=== PATIENT | female | born 1945 | race Hispanic/Latino ===

== ENCOUNTER → 2017-07-16 | Outpatient (CLI) | payer OTHER, MEDICARE | LOC: MAMMO 10:49 | PROVIDERS: ATTEND Family Medicine | DX: Z12.31 Encounter for screening mammogram for malignant neoplasm of breast (principal) | CPT/HCPCS: 77067 ==

== ENCOUNTER 2017-07-24 20:06 | Emergency (ER) | payer BC, MEDICARE ==
[~2017-07-24] VITALS: Ht 165.1 cm; Wt 97.5 kg
[2017-07-24] MEDS ORDERED: METOPROLOL SUCC50 MG PO (20:28)
[2017-07-24] MEDS ORDERED: IRBESARTAN150 MG PO (20:28)
[2017-07-24] MEDS ORDERED: ELIQUIS PO (20:28)
[2017-07-24] MEDS ORDERED: AMLODIPINE BESYL5 MG PO (20:28)
[2017-07-24] MEDS ORDERED: LASIX40 MG PO (20:28)
--- NOTE | 2017-07-24 21:09 | Diagnostic Imaging Report ---
LOWER LEG LEFT - 2 views HISTORY: Pain. COMPARISON: None available. FINDINGS: Bones: No acute displaced fracture. Osseous alignment is within normal limits. Joints: The joint spaces are well-maintained. Soft tissues: The soft tissues appear unremarkable. IMPRESSION: No acute radiographic abnormality. Signed by: Dr. Jones Petit M.D. on 07/24/2017 9:05 PM
[2017-07-24 21:20] LABS: BASOPHILS % 0.2 % (0.0-1.0); EOSINOPHILS # (AUTO) 0.2 (0.0-0.4); EOSINOPHILS % 2.9 % (0.0-6.0); HEMATOCRIT 38.5 % (34.2-44.1); HEMOGLOBIN 12.9 g/dL (12.0-16.0); LYMPHOCYTES # (AUTO) 2.1 (1.0-3.2); LYMPHOCYTES % 25.2 % (18.0-39.1); MEAN CORPUSCULAR HEMOGLOBIN 28.5 pg (28-32); MEAN CORPUSCULAR HGB CONC 33.5 g/dL (31-35); MEAN CORPUSCULAR VOLUME 85.2 fL (81-99); MONOCYTES % 12.5 % (4.4-11.3); NEUTROPHILS # (AUTO) 4.8 (2.1-6.9); PLATELET COUNT 236 x10e3/uL (140-360); RED BLOOD COUNT 4.52 x10e6/uL (3.6-5.1); RED CELL DISTRIBUTION WIDTH 14.1 % (11.7-14.4)
[2017-07-24 21:26] LABS: INR 1.1; PROTHROMBIN TIME 13.4 seconds (11.9-14.5)
[2017-07-24 21:27] LABS: PARTIAL THROMBOPLASTIN TIME 30.9 seconds (23.8-35.5)
[2017-07-24 21:36] LABS: ALANINE AMINOTRANSFERASE 12 IU/L (0-55); ALBUMIN 3.7 g/dL (3.5-5.0); ALBUMIN/GLOBULIN RATIO 0.8 (0.8-2.0); ALKALINE PHOSPHATASE 94 IU/L (40-150); ANION GAP 14.1 mmol/L (8-16); BLOOD UREA NITROGEN 13 mg/dL (7-26); BUN/CREATININE RATIO 17 (6-25); CALCIUM 9.7 mg/dL (8.4-10.2); CARBON DIOXIDE 22 mmol/L (22-29); CHLORIDE 106 mmol/L (98-107); CREATININE, SERUM 0.77 mg/dL (0.57-1.11); EST GLOMERULAR FILTRATION RATE > 60 ML/MIN (60-); GLUCOSE 115 mg/dL (74-118); POTASSIUM 4.1 mmol/L (3.5-5.1); SODIUM 138 mmol/L (136-145)
== END 2017-07-24 22:20 | disposition home or self-care (01) ==
LOC: ER 20:06
DX: S80.12XA Contusion of left lower leg, initial encounter (principal); W18.39XA Other fall on same level, initial encounter; Y92.008 Other place in unspecified non-institutional (private) residence as the place of occurrence of the external cause; I10 Essential (primary) hypertension; I25.10 Atherosclerotic heart disease of native coronary artery without angina pectoris; I48.91 Unspecified atrial fibrillation
CPT/HCPCS: 36415; 80053; 85025; 85610; 85730; 93971; 99284

== ENCOUNTER → 2017-08-20 | Outpatient (CLI) | payer BC, MEDICARE ==
[~2017-08-20] MED LIST: AMLODIPINE BESYL5 MG PO; ELIQUIS PO; IRBESARTAN150 MG PO; LASIX40 MG PO; METOPROLOL SUCC50 MG PO
--- NOTE | 2017-08-20 10:14 | Diagnostic Imaging Report ---
PROCEDURE:X-RAY RIGHT HEEL COMPARISON:None. INDICATIONS:HEEL SPUR, HEEL PAIN FINDINGS: No acute, displaced fracture or dislocation. Mild degenerative plantar and posterior calcaneal spur. Joint spaces are well-maintained. Mild soft tissue swelling adjacent to the superior margin of the calcaneus. CONCLUSION: no acute osseous abnormality. Degenerative plantar and posterior calcaneal spur. Dictated by: Kalin Alonso M.D. on 08/20/2017 at 10:16 Electronically approved by: Kalin Alonso M.D. on 08/20/2017 at 10:16
== END ==
LOC: RAD 09:39
PROVIDERS: ATTEND Family Medicine
DX: M79.671 Pain in right foot (principal)

== ENCOUNTER → 2018-07-30 | Outpatient (CLI) | payer MEDICARE, BC ==
--- NOTE | 2018-07-30 09:24 | Diagnostic Imaging Report ---
EXAMINATION: PA and lateral views of the chest. COMPARISON: None CLINICAL HISTORY: Paroxysmal ventricular tachycardia, cough, back pain, chest pain DISCUSSION: The lungs are well-inflated. No focal airspace consolidation, pleural effusion, or pneumothorax. Atherosclerotic calcification of the thoracic aorta. Otherwise normal cardiomediastinal contour. No pulmonary edema. No acute osseous abnormalities. Mild degenerative disc changes of the thoracic spine. IMPRESSION: No acute cardiopulmonary abnormalities. Signed by: Dr. Kalin Alonso M.D. on 07/30/2018 9:21 AM
== END ==
LOC: RAD 08:03
PROVIDERS: ATTEND Family Medicine
DX: I47.2 Ventricular tachycardia (principal)
CPT/HCPCS: 71046

== ENCOUNTER → 2018-08-03 | Outpatient (CLI) | payer BC, MEDICARE | LOC: MAMMO 09:23 | PROVIDERS: ATTEND Family Medicine | DX: Z12.31 Encounter for screening mammogram for malignant neoplasm of breast (principal) | CPT/HCPCS: 77067 ==

== ENCOUNTER → 2019-01-11 | Day surgery (SDC) | payer MEDICARE ==
[2019-01-05 17:24] LABS: BASOPHILS % 0.5 % (0.0-1.0); EOSINOPHILS # (AUTO) 0.2 (0.0-0.4); EOSINOPHILS % 2.8 % (0.0-6.0); HEMATOCRIT 39.4 % (34.2-44.1); HEMOGLOBIN 12.7 g/dL (12.0-16.0); LYMPHOCYTES # (AUTO) 1.9 (1.0-3.2); LYMPHOCYTES % 30.5 % (18.0-39.1); MEAN CORPUSCULAR HEMOGLOBIN 27.6 pg (28-32); MEAN CORPUSCULAR HGB CONC 32.2 g/dL (31-35); MEAN CORPUSCULAR VOLUME 85.7 fL (81-99); MONOCYTES # (AUTO) 0.8 (0.2-0.8); MONOCYTES % 12.3 % (4.4-11.3); NEUTROPHILS # (AUTO) 3.4 (2.1-6.9); NEUTROPHILS % 53.6 % (38.7-80.0); PLATELET COUNT 208 x10e3/uL (140-360)
[~2019-01-11] MED LIST changes: +FENTANYL CITRATE/PF 100MCG/2 ML INJ ONE; +LANSOPRAZOLE30 MG PO; +MIDAZOLAM HCL 2 MG/2 ML VIAL ONE; +NEOMYCIN/POLYMYXIN/DEX (OPTH) 3.5 GM TUBE ONE; +OR PHACO EYE KIT ONE; +PREOP PHACO EYE KIT ONE; +TIKOSYN500 MCG PO
--- OUTSIDE RECORDS SUMMARY | 2019-01-11 11:35 | XMS REPORT | CCD ---
Author Author Auto Generated Organization [facility] Address Unknown Phone Unavailable Care Team Providers Care Sample Dye Mixer Name Role Phone Festus Gleason CP Allergies, Adverse Reactions, Alerts Substance Reaction Status Levaquin Active penicillins Active Medications Medication Instructions Start Date End Date Status Phenergan 25 mg oral 25 mg, 1 tab, PO, Q4H, PRN, 15 tab, 06/19/2012 Ordered tablet Nausea, Substitution Allowed [place] 5/325 oral 1-2 tab, PO, Q4-6H, PRN, 15 tab, 06/19/2012 06/24/2012 Ordered tablet Pain, Substitution Allowed, Maintenance Zofran 4 mg, 2 mL, Route: IVP, Drug form: 06/18/2012 06/19/2012 Completed INJ, ONCE, Dosing Weight 98.636, kg, Priority: STAT, Start date: 06/18/12 23:22:00, Stop date: 06/18/12 23:22:00 morphine Sulfate 4 mg, 2 mL, Route: IVP, Drug form: 06/18/2012 06/19/2012 Completed INJ, ONCE, Dosing Weight 98.636, kg, Priority: STAT, Start date: 06/18/12 23:22:00, Stop date: 06/18/12 23:22:00 Vital Signs Most recent to oldest [Reference Range]: 1 Height 165.1 cm (06/18/2012 22:56:00) Weight 98.636 kg (06/18/2012 22:56:00)
--- OUTSIDE RECORDS SUMMARY | 2019-01-11 11:35 | XMS REPORT | Continuity of Care Document ---
Author Author [facility] Address Unknown Phone Unavailable Care Team Providers Care Lining Vamper Name Role Phone [facility] Unavailable Unavailable Problems Problem Status Onset Date Classification Date Reported Comments Source LEG PAIN Active 06/22/2012 [facility] LEFT LEG PAIN Active 06/18/2012 [facility] Medications Medication Details Route Status Patient Instructions Ordering Provider Order Date Source Phenergan 25 mg oral tablet 25 mg, 1 tab, PO, Q4H, PRN, 15 tab, Nausea, Substitution Allowed PO Active [facility] 06/19/2012 [facility] [place] 5/325 oral tablet 1-2 tab, PO, Q4-6H, PRN, 15 tab, Pain, Substitution Allowed, Maintenance PO Active [facility] 06/19/2012 [facility] Zofran 4 mg, 2 mL, Route: IVP, Drug form: INJ, ONCE, Dosing Weight 98.636, kg, Priority: STAT, Start date: 06/18/12 23:22:00, Stop date: 06/18/12 23:22:00 IVP No Longer Active [facility] 06/19/2012 [facility] morphine Sulfate 4 mg, 2 mL, Route: IVP, Drug form: INJ, ONCE, Dosing Weight 98.636, kg, Priority: STAT, Start date: 06/18/12 23:22:00, Stop date: 06/18/12 23:22:00 IVP No Longer Active [facility] 06/19/2012 [facility] Amlodipine Besylate 5 Mg Tablet Daily Active [facility] Eliquis Daily Active [facility] Furosemide (Lasix) 40 Mg Tablet Daily Active [facility] Irbesartan 150 Mg Tablet Daily Active [facility] Metoprolol Succinate 50 Mg Tab.er.24h Daily Active [facility] Allergies, Adverse Reactions, Alerts Substance Category Reaction Severity Reaction type Status Date Reported Comments Source PENICILLIN Unknown Allergy to Substance Active 07/24/2017 [facility] Levaquin drug allergy Allergy Active [facility] penicillins propensity to adverse reactions to substance Adverse Reaction Active [facility] Immunizations No Data Provided for This Section Results Order Name Results Value Reference Range Date Interpretation Comments Source Activated partial thromboplastin time (aPTT) in platelet poor plasma bycoagulation assay Activated partial thromboplastin time (aPTT) in platelet poor plasma bycoagulation assay 30.9 23.8 - 35.5 07/24/2017 [facility] Automated blood basophil count (count/volume) Automated blood basophil count (count/volume) 0.0 0.0 - 0.1 07/24/2017 [facility] Automated blood basophil count as percentage of total leukocytes Automated blood basophil count as percentage of total leukocytes 0.2 0.0 - 1.0 07/24/2017 [facility] Automated blood eosinophil count Automated blood eosinophil count 0.2 0.0 - 0.4 07/24/2017 [facility] Automated blood eosinophil count as percentage of total leukocytes Automated blood eosinophil count as percentage of total leukocytes 2.9 0.0 - 6.0 07/24/2017 [facility] Automated blood hematocrit (volume fraction) Automated blood hematocrit (volume fraction) 38.5 34.2 - 44.1 07/24/2017 [facility] Automated blood lymphocyte count as percentage ot total leukocytes Automated blood lymphocyte count as percentage ot total leukocytes 25.2 18.0 - 39.1 07/24/2017 [facility] Automated blood monocyte count as percentage of total leukocytes Automated blood monocyte count as percentage of total leukocytes 12.5 4.4 - 11.3 07/24/2017 [facility] Automated blood neutrophil count Automated blood neutrophil count 4.8 2.1 - 6.9 07/24/2017 [facility] Automated blood platelet count (count/volume) Automated blood platelet count (count/volume) 236 140 - 360 07/24/2017 [facility] Automated blood segmented neutrophil count as percentage of total leukocytes Automated blood segmented neutrophil count as percentage of total leukocytes 59.0 38.7 - 80.0 07/24/2017 [facility] Automated erythrocyte mean corpuscular hemoglobin (mass per erythrocyte) Automated erythrocyte mean corpuscular hemoglobin (mass per erythrocyte) 28.5 28 - 32 07/24/2017 [facility] Automated erythrocyte mean corpuscular hemoglobin concentration measurement (mass/volume) Automated erythrocyte mean corpuscular hemoglobin concentration measurement (mass/volume) 33.5 31 - 35 07/24/2017 [facility] Automated erythrocyte mean corpuscular volume Automated erythrocyte mean corpuscular volume 85.2 81 - 99 07/24/2017 [facility] Blood erythrocytes automated count (number/volume) Blood erythrocytes automated count (number/volume) 4.52 3.6 - 5.1 07/24/2017 [facility] Blood hemoglobin measurement (moles/volume) Blood hemoglobin measurement (moles/volume) 12.9 12.0 - 16.0 07/24/2017 [facility] Blood leukocytes automated count (number/volume) Blood leukocytes automated count (number/volume) 8.19 4.8 - 10.8 07/24/2017 [facility] Blood lymphocytes count (number/volume) Blood lymphocytes count (number/volume) 2.1 1.0 - 3.2 07/24/2017 [facility] Blood monocytes automated count (number/volume) Blood monocytes automated count (number/volume) 1.0 0.2 - 0.8 07/24/2017 [facility] Estimated glomerular filtration rate (GFR) determination Estimated glomerular filtration rate (GFR) determination >60 60 07/24/2017 [facility] Glucose measurement Glucose measurement 115 74 - 118 07/24/2017 [facility] INR in Platelet poor plasma by Coagulation assay INR in Platelet poor plasma by Coagulation assay 1.10 07/24/2017 [facility] Plasma globulin measurement (mass/volume) Plasma globulin measurement (mass/volume) 4.4 2.3 - 3.5 07/24/2017 [facility] Prothrombin time (PT) in platelet poor plasma by coagulation assay Prothrombin time (PT) in platelet poor plasma by coagulation assay 13.4 11.9 - 14.5 07/24/2017 [facility] Serum or plasma alanine aminotransferase measurement (enzymatic activity/volume) Serum or plasma alanine aminotransferase measurement (enzymatic activity/volume) 12 0 - 55 07/24/2017 [facility] Serum or plasma albumin measurement (mass/volume) Serum or plasma albumin measurement (mass/volume) 3.7 3.5 - 5.0 07/24/2017 [facility] Serum or plasma albumin/globulin mass ratio Serum or plasma albumin/globulin mass ratio 0.8 0.8 - 2.0 07/24/2017 [facility] Serum or plasma alkaline phosphatase measurement (enzymatic activity/volume) Serum or plasma alkaline phosphatase measurement (enzymatic activity/volume) 94 40 - 150 07/24/2017 [facility] Serum or plasma anion gap Serum or plasma anion gap 14.1 8 - 16 07/24/2017 [facility] Serum or plasma calcium measurement (mass/volume) Serum or plasma calcium measurement (mass/volume) 9.7 8.4 - 10.2 07/24/2017 [facility] Serum or plasma carbon dioxide, total measurement (moles/volume) Serum or plasma carbon dioxide, total measurement (moles/volume) 22 22 - 29 07/24/2017 [facility] Serum or plasma chloride measurement (moles/volume) Serum or plasma chloride measurement (moles/volume) 106 98 - 107 07/24/2017 [facility] Serum or plasma creatinine measurement (mass/volume) Serum or plasma creatinine measurement (mass/volume) 0.77 0.57 - 1.11 07/24/2017 [facility] Serum or plasma potassium measurement (moles/volume) Serum or plasma potassium measurement (moles/volume) 4.1 3.5 - 5.1 07/24/2017 [facility] Serum or plasma protein measurement (mass/volume) Serum or plasma protein measurement (mass/volume) 8.1 6.5 - 8.1 07/24/2017 [facility] Serum or plasma sodium measurement (moles/volume) Serum or plasma sodium measurement (moles/volume) 138 136 - 145 07/24/2017 [facility] Serum or plasma total bilirubin measurement (mass/volume) Serum or plasma total bilirubin measurement (mass/volume) 0.5 0.2 - 1.2 07/24/2017 [facility] Serum or plasma urea nitrogen measurement (mass/volume) Serum or plasma urea nitrogen measurement (mass/volume) 13 7 - 26 07/24/2017 [facility] Serum or plasma urea nitrogen/creatinine mass ratio Serum or plasma urea nitrogen/creatinine mass ratio 17 6 - 25 07/24/2017 [facility] Red Cell Distribution Width 14.1 11.7 - 14.4 07/24/2017 [facility] IM GRANULOCYTES % 0.2 0.0 - 1.0 07/24/2017 [facility] Absolute Immature Granulocyte (auto 0.02 0 - 0.1 07/24/2017 [facility] Aspartate Amino Transf (AST/SGOT) 26 5 - 34 07/24/2017 [facility] Pathology Reports No Data Provided for This Section Diagnostic Reports No Data Provided for This Section Consultation Notes No Data Provided for This Section Discharge Summaries No Data Provided for This Section History and Physicals No Data Provided for This Section Vital Signs Vital Sign Value Date Comments Source Weight 98.636 06/22/2012 [facility] Height 165.1 cm 06/22/2012 [facility] Weight 98.636 06/19/2012 [facility] Height 165.1 cm 06/19/2012 [facility] Encounters Location Location Details Encounter Type Encounter Number Reason For Visit Attending Provider ADM Date DC Date Status Source [facility] Emergency [id number] BHAVYA PEREZ 06/18/2012 06/19/2012 Discharged [facility] Emergency [id number] LEG PAIN KOBI SUZANNE 06/22/2012 06/22/2012 Active [facility] Registered Clinic [id number] TOBI HENSON 07/16/2017 [facility] Departed Emergency Room [id number] HEMANT CHASE MD 07/24/2017 07/24/2017 [facility] Procedures No Data Provided for This Section Assessment and Plan No Data Provided for This Section Plan of Care Plan of Care Date Source Discharge Date 07/24/17 10:20pm Disposition HOME, SELF-CARE Condition at Discharge Stable Instructions/Education Provided Contusion Forms Provided Work/School Excuse Prescriptions See Medication Section Referrals TOBI HENSON Order Date: Call for an appointment Address: [address] [place] [address] [place] [id number] Additional Instructions/Education NO STRENUOUS ACTIVITY WALK AND BEAR WEIGHT TOLERATED FOLLOW UP WITH PCP RETURN TO THE ER NEEDED 07/24/2017 [facility] Social History Social History Date Source No social history information available. 07/24/2017 [facility] Family History No Data Provided for This Section Advance Directives Order Name Results Value Date Source Advance Directives Advance Directives Directive Response Recorded Date/Time Does the patient have an advance directive? No 02/26/16 1:37pm If yes, is advance directive on file with [facility]? No 02/26/16 1:37pm If not on file with [facility] will patient provide a copy? No 02/26/16 1:37pm Do you have a Directive to Physician? No 07/24/17 9:34pm Do you have a Medical Power of Income Tax Advisor? No 07/24/17 9:34pm Do you have an out of hospital Do Not Resuscitate Order? No 07/24/17 9:34pm Do you have any special needs we should be aware of? No 07/24/17 9:34pm Do you have a support person here with you today? Yes 07/24/17 9:34pm Did patient receive Notice of Privacy Practices? Yes 07/24/17 9:34pm Did patient receive patient rights and responsibilities? Yes 07/24/17 9:34pm 07/24/2017 [facility] Functional Status No Data Provided for This Section
--- OUTSIDE RECORDS SUMMARY | 2019-01-11 11:35 | XMS REPORT | CCD ---
Author Author Auto Generated Organization [facility] Address Unknown Phone Unavailable Care Team Providers Care Key Account Representative Name Role Phone Cherri Melendez CP Allergies, Adverse Reactions, Alerts Substance Reaction Status Levaquin Active penicillins Active Vital Signs Most recent to oldest [Reference Range]: 1 Height 165.1 cm (06/22/2012 09:26:00) Weight 98.636 kg (06/22/2012 09:26:00)
--- OUTSIDE RECORDS SUMMARY | 2019-01-11 11:35 | XMS REPORT ---
[facility] Address Unknown Phone Unavailable Care Team Providers Care Ecd Name Role Phone TOBI HENSON Unavailable Unavailable Lazaro CHASE Unavailable Unavailable Problems This patient has no known problems. Allergies, Adverse Reactions, Alerts This patient has no known allergies or adverse reactions. Medications This patient has no known medications. Results Test Description Test Time Test Comments Text Results Atomic Results Result Comments MAMMOGRAPHY DIGITAL SCR BILAT 2018-08-03 11:34:00 [place] [address] Patient Name: EDWARD YOON MR #: [id number] : 1945 Age/Sex: 72/F Req #: [id number] [facility] Physician: Ordered by: SIXTO MERINO, TOBI Chavira MD Report #: [id number] Location: MAMMO Room/Bed: Procedure: [id number] MG/MAMMOGRAPHY DIGITAL SCR BILAT Exam Date: 08/03/18 Exam Time: 1000 REPORT STATUS: Signed #[id number] - MGSCRBIL #BILATERAL DIGITAL SCREENING MAMMOGRAM WITH CAD: 08/03/2018 CLINICAL: Routine screening. Comparison is made to exams dated: 07/16/2017 mammogram - [facility], 01/14/2016 mammogram, 12/27/2015 mammogram, 12/01/2012 mammogram, 12/01/2013 mammogram and 12/05/2014 mammogram - [facility]. Current study contains 7 films. There are scattered fibroglandular elements in both breas ts. Current study was also evaluated with a Computer Aided Detection (CAD) system. There are benign vascular calcifications and calcifications in both breasts. There also is a biopsy clip in the right breast. No significant masses, calcifications, or other findings are seen in either breast. There has been no significant interval change. IMPRESSION: BENIGN There is no mammographic evidence of malignancy. A 1 year screening mammogram is recommended. The patient will be notified by letter of the results. Nany mario/gabino:08/17/2018 18:05:24 Kiln Placer: CHRISTA MCKINLEY [facility] letter sent: Compared to Prior B9 Mammogram BI-RADS: 2 Benign Dictated By: NANY HINDS DO 04 Transcribed By: GABINO on 08/17/181804 COPY TO: TOBI HENSON CHEST 2 VIEWS 2018-07-30 09:20:00 [place] [address] Patient Name: EDWARD YOON MR #: [id number] : 1945 Age/Sex: 72/F Req #: [id number] Adm Physician: Ordered by: TOBI HENSON MD, MD Report #: [id number] Location: [facility] Room/Bed: Procedure: [id number] DX/CHEST 2 VIEWS Exam Date: 07/30/18 Exam Time: 0815 REPORT STATUS: Signed EXAMINATION: PA and lateral views of the chest. C OMPARISON: None CLINICAL HISTORY: Paroxysmal ventricular tachycardia, cough, back pain, chest pain DISCUSSION: The lungs are well- inflated. No focal airspace consolidation, pleural effusion, or pneumothorax. Atherosclerotic calcification of the thoracic aorta. Otherwise normal cardiomediastinal contour. No pulmonary edema. No acute osseous abnormalities. Mild degenerative disc changes of the thoracic spine. IMPRESSION: No acute cardiopulmonary abnormalities. Signed by: Dr. Stacey Johnston M.D. on 07/30/2018 9:21 AM Dictated By: STACEY RIBEIRO MD 0 Transcribed By: RAYMON on 07/30/18920 COPY TO: TOBI HENSON RT [place] [address] Patient Name: EDWARD YOON MR #: [id number] : 1945 Age/Sex: 71/F Req #: [id number] Adm Physician: Ordered by: TOBI HENSON MD, MD Report #: [id number] Location: [facility] Room/Bed: Procedure: [id number] DX/HEEL RT Exam Date: 08/20/17 Exam Time: 919 REPORT STATUS: Signed PROCEDURE: X-RAY RIGHT HEEL COMPARISON: None. INDICATIONS: HEEL SPUR, HEEL PAIN FINDINGS: No acute, displaced fracture or dislocation. Mild degenerative plantar and posterior calcaneal spur. Joint spaces are well-maintained. Mild soft tissue swelling adjacent to the superior margin of the calcaneus. CONCLUSION: no acute osseous abnormality. Degenerative plantar and posterior calcaneal spur. Dictated by: Stacey Johnston M.D. on 08/20/2017 at 10:16 Electronically approved by: Stacey Johnston M.D. on 08/20/2017 at 10:16 Dictated By: STACEY JOHNSTON MD 1016 Transcribed By: CHUCK on 08/20/17 1016 COPY TO: TOBI HENSON LOWER LEG LEFT [place] [address] Patient Name: EDWARD YOON MR #: [id number] : 1945 Age/Sex: 71/F Req #: [id number] Adm Physician: Ordered by: HEMANT CHASE MD Report #: [id number] Location: ER Room/Bed: Procedure: [id number] DX/LOWER LEG LEFT Exam Date: 07/24/17 Exam Time: 2045 REPORT STATUS: Signed LOWER LEG LEFT - 2 views HISTORY: Pain. COMPARISON: None available. FINDINGS: Bones: No acute displaced fracture. Osseous alignment is within normal limits. Joints: The joint spaces are well-maintained. Soft tissues: The soft tissues appear unremarkable. IMPRESSION: No acute radiographic abnormality. Signed by: Dr. Ming Johnson M.D. on 07/24/2017 9:05 PM Dictated By: MING JOHNSON MD 04 Transcribed By: RAYMON on 07/24/172104 COPY TO: HEMANT CHASE MD MAMMOGRAPHY DIGITAL SCR BILAT [place] [address] Patient Name: EDWARD YOON MR #: [id number] : 1945 Age/Sex: 71/F Req #: [id number] Adm Physician: Ordered by: HENSONTOBI CROWELL MD, MD Report #: [id number] Location: MAMMO Room/Bed: Procedure: [id number] MG/MAMMOGRAPHY DIGITAL SCR BILAT Exam Date: 07/16/17 Exam Time: 1106 REPORT STATUS: Signed #[id number] - MGSCRBIL #BILATERAL DIGITAL SCREENING MAMMOGRAM WITH CAD: 07/16/2017 CLINICAL: Routine screening. Comparison is made to exams dated: 07/15/2016 ultrasound - [facility], 01/14/2016 mammogram and 12/27/2015 mammogram - [facility]. Current study contains 6 films. There are scattered fibroglandular elements in both breasts. Current study was also evaluated with a Computer Aided Detection (CAD) system. There are benign vascular calcifications and calcifications in both breasts. There also is a biopsy clip in the right breast. No significant masses, calcifications, or other findings are seen in either breast. There has been no significant interval change. IMPRESSION: BENIGN There is no mammographic evidence of malignancy. A 1 year screening mammogram is recommended. The patient will be notified by letter of the results. Nany mario/gabino:08/05/2017 09:27:26 Kiln Placer: Michelle LIU(R)(M), [facility] letter sent: Compared to Prior B9 Mammogram BI- RADS: 2 Benign Dictated By: NANY HINDS DO 6 Transcribed By: GABINO on 08/05/17926 COPY TO: TOBI HENSON
[2019-01-11 15:35] VITALS: BP 140/75
== END | disposition home or self-care (01) ==
LOC: OR 11:32
PROVIDERS: ATTEND Ophthalmology
DX: H25.11 Age-related nuclear cataract, right eye (principal); I10 Essential (primary) hypertension; I48.91 Unspecified atrial fibrillation; K21.9 Gastro-esophageal reflux disease without esophagitis; M79.7 Fibromyalgia; R42 Dizziness and giddiness; F32.9 Major depressive disorder, single episode, unspecified; F41.9 Anxiety disorder, unspecified; Z88.0 Allergy status to penicillin; Z01.810 Encounter for preprocedural cardiovascular examination; Z01.812 Encounter for preprocedural laboratory examination; Z79.02 Long term (current) use of antithrombotics/antiplatelets
CPT/HCPCS: 36415; 66984; 85025; 93005; J2250; J3010

== ENCOUNTER → 2019-01-25 | Day surgery (SDC) | payer MEDICARE ==
[~2019-01-25] MED LIST changes: -FENTANYL CITRATE/PF 100MCG/2 ML INJ ONE; -NEOMYCIN/POLYMYXIN/DEX (OPTH) 3.5 GM TUBE ONE
[2019-01-25 10:25] VITALS: BP 140/75
== END | disposition home or self-care (01) ==
LOC: OR 07:12
PROVIDERS: ATTEND Ophthalmology
DX: H25.12 Age-related nuclear cataract, left eye (principal); I48.0 Paroxysmal atrial fibrillation; I10 Essential (primary) hypertension; K21.9 Gastro-esophageal reflux disease without esophagitis; Z88.0 Allergy status to penicillin; Z79.02 Long term (current) use of antithrombotics/antiplatelets
CPT/HCPCS: 66984; J2250

== ENCOUNTER → 2019-09-22 | Emergency (ER) | payer BC, MEDICARE ==
[~2019-09-22] MED LIST changes: -MIDAZOLAM HCL 2 MG/2 ML VIAL ONE; -OR PHACO EYE KIT ONE; -PREOP PHACO EYE KIT ONE
--- OUTSIDE RECORDS SUMMARY | 2019-09-22 20:39 | XMS REPORT ---
Author Author [facility] t Organization [facility] Address [address] [place] [address] [address]. [address] [place] [address] Phone Unavailable Care Team Providers Care Tour Leader Name Role Phone TOBI HENSON PCP TOBI HENSON Attphys Unavailable Lazaro CHASE Attphys Unavailable Payers Payer Name Policy Type Policy Number Effective Date Expiration Date [facility] [id number] 2016 00:00:00 [facility] Medicare A & B [id number] 2010 00:00:00 [facility] Problems Condition Name Condition Details Condition Category Status Onset Date Resolution Date Last Treatment Date Treating Clinician Comments Source LEG PAIN LEG PAIN Active 06/22/2012 [facility] Diagnosis Active 2012-06-22 00:00:00 2012-07-20 09:32:00 [facility] LEFT LEG PAIN LEFT LEG PAIN Active 06/18/2012 [facility] Diagnosis Active 2012-06-18 12:00:00 2012-06-19 01:42:00 [facility] Allergies, Adverse Reactions, Alerts Allergy Name Allergy Type Status Severity Reaction(s) Onset Date Inacti ve Date Treating Clinician Comments Source PENICILLIN Allergy to Substance Active 2017-07-24 00:00:00 [facility] Levaquin Levaquin Active [facility] penicillins penicillins Active [facility] Medications Ordered Medication Name Filled Medication Name Start Date Stop Da te Current Medication? Ordering Clinician Indication Dosage Frequency Signature (SIG) Comments Components Source Phenergan 25 mg oral tablet 2012-06-19 06:59:34 Yes Festus Gleason 25 mg, 1 tab, PO, Q4H, PRN, 15 tab, Nausea, Substituti on Allowed [facility] [place] 5/325 oral tablet 2012-06-19 06:59:29 Yes Festus Daquan hael Rosibel 1-2 tab, PO, Q4-6H, PRN, 15 tab, Pain, Substitution Allowed, Maintenance [facility] Zofran 2012-06-19 05:22:00 No Festus Gleason 4 mg, 2 mL, Route: IVP, Drug form: INJ, ONCE, Dosing Weight 98.636, kg, Priority: STAT, Start date: 06/18/12 23:22:00, Stop date: 06/18/12 23:22:00 [facility] morphine Sulfate 2012-06-19 05:22:00 No Festus Hemant Melton eearsenio 4 mg, 2 mL, Route: IVP, Drug form: INJ, ONCE, Dosing Weight 98.636, kg, Priority: STAT, Start date: 06/18/12 23:22:00, Stop date: 06/18/12 23:22:00 [facility] Amlodipine Besylate 5 Mg Tablet Amlodipine Besylate 5 Mg Tablet Yes 5 [facility] Eliquis Eliquis Yes 5 Daily [facility] Furosemide (Lasix) 40 Mg Tablet Furosemide (Lasix) 40 Mg Tablet Yes 40 Daily [facility] Irbesartan 150 Mg Tablet Irbesartan 150 Mg Tablet Yes 300 Daily [facility] Metoprolol Succinate 50 Mg Tab.er.24h Metoprolol Succinate 50 Mg Ta b.er.24h Yes 25 Daily [facility] Vital Signs Vital Name Observation Time Observation Value Comments Source [facility] 2012-06-22 15:26:00 [facility] Height 2012-06-22 15:26:00 165.1 cm [facility] Weight 2012-06-19 04:56:00 [facility] Height 2012-06-19 04:56:00 165.1 cm [facility] Procedures This patient has no known procedures. Encounters Start Date/Time End Date/Time Encounter Type Admission Type Attendi [facility] Facility Care Department Encounter ID Source 2017-07-24 20:06:00 2017-07-24 22:20:00 Departed Emergency Room ER HEMANT CHASE [facility] [id number] [facility] 2017-07-16 10:49:00 2017-07-16 10:49:00 Registered Clinic TOBI PIZARRO [facility] [id number] [facility] 2012-06-22 09:25:00 2012-06-22 10:36:00 Emergency CARLOS GONZALES [facility] [id number] [facility] 2012-06-18 22:54:00 2012-06-19 01:42:00 Emergency CARLOS [facility] [id number] [facility] Results Test Description Test Time Test Comments Results Result Comments Source MAMMOGRAPHY DIGITAL SCR BILAT 2018-08-03 11:34:00 [facility] [address] [address] Patient Name: EDWARD YOON MR #: [id number] : 1945 Age/Sex: 72/F Req #: [id number] Adm Physician: Ordered by: TOBI HENSON MD, MD Report #: [id number] Location: MAMMO Room/Bed: Procedure: [id number] MG/MAMMOGRAPHY DIGITAL SCR BILAT Exam Date: 08/03/18 Exam Time: 1000 REPORT STATUS: Signed #[id number] - MGSCRBIL #BILATERAL DIGITAL SCREENING MAMMOGRAM WITH CAD: 08/03/2018 CLINICAL: Routine screening. Comparison is made to exams dated: 07/16/2017 mammogram - [facility], 01/14/2016 mammogram, 12/27/2015 mammogram, 12/01/2012 mammogram, 12/01/2013 [...] be notified by letter of the results. [employer]qu[employer] mario/bertin:08/17/2018 18 :05:24 Defensive Secondary Coach: CHRISTA MCKINLEY [facility] letter sent: Compared to Prior B9 Mammogram BI-RADS: 2 Benign Dictated By: TAQUERIA HINDS DO 04 Transcribed By: BERTIN on 08/17/181804 COPY TO: TOBI HENSON CHEST 2 VIEWS 2018-07-30 09:20:[address] [address] Patient Name: EDWARD YOON MR #: [id number] : 1945 Age/Sex: 72/F Req #: [id number] Adm Physician: Ordered by: TOBI HENSON MD, MD Report #: [id number] Location: [facility] Room/Bed: Procedure: [id number] DX/CHEST 2 VIEWS Exam Date: 07/30/18 Exam Time: 0815 REPORT STATUS: Signed EXAMINATION: PA and lateral views of the chest. COMPARISON: None CLINICAL HISTORY: Paroxysmal ventricular tachycardia, cough, back pain, chest pain DISCUSSION: The lungs are well-inflated. No focal airspace consolidation, pleural effusion, or pneumothorax. Atherosclerotic calcification of the thoracic aorta. Otherwise normal cardiomediastinal contour. No pulmonary edema. No acute osseous abnormalities. Mild degenerative disc changes of the thoracic spine. IMPRESSION: No acute cardiopulmonary abnormalities. Signed by: Dr. Stacey Alonso M.D. on 07/30/2018 9:21 AM Dictated By: STACEY RIBEIRO MD 0 Transcribed By: RAYMON on 07/30/18920 COPY TO: TOBI HENSON Sodium Level 2017-07-24 21:36:00 Test Item Sodium Level (test code = 2951-2) 138 136-145 [facility] Xhezq9150-03-72 21:36:00* Test Item Value Reference Range Interpretation Comments Potassium Level (test code = 2823-3) 4.1 3.5-5.1 1+ HEMOLYSIS [facility] HospitalChloride Xwjtk8054-90-16 21:36:00* Test Item Value Reference Range Interpretation Comments Chloride Level (test code = 2075-0) 106 98-107 [facility] HospitalCarbon Dioxide Avvtd7989-20-07 21:36:00* Test Item Value Reference Range Interpretation Comments Carbon Dioxide Level (test code = 2028-9) 22 22-29 [facility] HospitalAnion Dnj0280-52-17 21:36:00* Test Item Value Reference Range Interpretation Comments Anion Gap (test code = 03289-4) 14.1 8-16 [facility] HospitalBlood Urea Wbepohrc0554-18-75 21:36:00* Test Item Value Reference Range Interpretation Comments Blood Urea Nitrogen (test code = 3094-0) 13 7-26 [facility] HospitalCreatinine2018-03-30 21:36:00* Test Item Value Reference Range Interpretation Comments Creatinine (test code = 2160-0) 0.77 0.57-1.11 [facility] HospitalBUN/Creatinine Xndda1410-90-44 21:36:00* Test Item Value Reference Range Interpretation Comments BUN/Creatinine Ratio (test code = 3097-3) 17 6-25 [facility] HospitalEstimat Glomerular Filtration Rate 2017-07-24 21:36:00* Test Item Value Reference Range Interpretation Comments Estimat Glomerular Filtration Rate (test code = 91778-4) 60- >60 Ranges were taken from the National Kidney Disease Education Program and the [facility] Kidney Foundation literature.Reference ranges:60 or greater: Iymzsg41-64 ( for 3 consecutive months): Chronic kidney disease 15 or less: Kidney failureRolling Plains Memorial HospitalGlucose Emnyv1960-52-61 21:36:00* Test Item Value Reference Range Interpretation Comments Glucose Level (test code = ZMN3615) 115 74-118 [facility] HospitalCalcium Yqnny8586-93-39 21:36:00* Test Item Value Reference Range Interpretation Comments Calcium Level (test code = 73711-8) 9.7 8.4-10.2 [facility] HospitalTotal Hfisdteqn0740-70-21 21:36:00* Test Item Value Reference Range Interpretation Comments Total Bilirubin (test code = 1975-2) 0.5 0.2-1.2 [facility] HospitalAspartate Amino Transf (AST/SGOT) 2017-07-24 21:36:00* Test Item Value Reference Range Interpretation Comments Aspartate Amino Transf (AST/SGOT) (test code = Aspartate Amino Transf (AST/SGOT)) 26 5-34 [facility] HospitalAlanine Aminotransferase (ALT/SGPT) 2017-07-24 21:36:00* Test Item Value Reference Range Interpretation Comments Alanine Aminotransferase (ALT/SGPT) (test code = 1742-6) 12 0-55 [facility] HospitalTotal Ogfjrpp4525-29-18 21:36:00* Test Item Value Reference Range Interpretation Comments Total Protein (test code = 2885-2) 8.1 6.5-8.1 [facility] HospitalAlbumin2018-03-30 21:36:00* Test Item Value Reference Range Interpretation Comments Albumin (test code = 1751-7) 3.7 3.5-5.0 [facility] HospitalGlobulin2018-03-30 21:36:00* Test Item Value Reference Range Interpretation Comments Globulin (test code = 01502-4) 4.4 2.3-3.5 H [facility] HospitalAlbumin/Globulin Mfjfa0246-52-43 21:36:00 * Test Item Value Reference Range Interpretation Comments Albumin/Globulin Ratio (test code = 1759-0) 0.8 0.8-2.0 [facility] HospitalAlkaline Jqlqzztvlxl7714-86-73 21:36:00* Test Item Value Reference Range Interpretation Comments Alkaline Phosphatase (test code = 6768-6) 94 40-150 [facility] HospitalProthrombin Dgim2069-18-44 21:27:00* Test Item Value Reference Range Interpretation Comments Prothrombin Time (test code = 5902-2) 13.4 11.9-14.5 [facility] HospitalProthromb Time International Ratio 2017-07-24 21:27:00* Test Item Value Reference Range Interpretation Comments Prothromb Time International Ratio (test code = 6301-6) 1.10 Oral Anticoagulant Therapy INR Values:1. Low Intensity Therapy 1.5 - 2.02 . Moderate Intensity Therapy 2.0 - 3.03. High Intensity Therapy(1) 2.5 - 3. 54. High Intensity Therapy(2) 3.0 - 4.05. Panic Value INR > 5.0 [facility] HospitalActivated Partial Thromboplast Time 2017-07-24 21:27:00* Test Item Value Reference Range Interpretation Comments Activated Partial Thromboplast Time (test code = 81683-1) 30.9 23.8-35.5 [facility] HospitalWhite Blood Poctk0083-20-36 21:21:00* Test Item Value Reference Range Interpretation Comments White Blood Count (test code = 6690-2) 8.19 4.8-10.8 [facility] HospitalRed Blood Hbyvd5872-29-00 21:21:00* Test Item Value Reference Range Interpretation Comments Red Blood Count (test code = 789-8) 4.52 3.6-5.1 [facility] HospitalHemoglobin2018-03-30 21:21:00* Test Item Value Reference Range Interpretation Comments Hemoglobin (test code = 07093-7) 12.9 12.0-16.0 [facility] HospitalHematocrit2018-03-30 21:21:00* Test Item Value Reference Range Interpretation Comments Hematocrit (test code = 4544-3) 38.5 34.2-44.1 [facility] HospitalMean Corpuscular Wrfapi0322-93-57 21:21:00* Test Item Value Reference Range Interpretation Comments Mean Corpuscular Volume (test code = 787-2) 85.2 81-99 [facility] HospitalMean Corpuscular Bjpbsqfoxv2866-10-61 21:21:00* Test Item Value Reference Range Interpretation Comments Mean Corpuscular Hemoglobin (test code = 785-6) 28.5 28-32 [facility] HospitalMean Corpuscular Hemoglobin Concent 2017-07-24 21:21:00* Test Item Value Reference Range Interpretation Comments Mean Corpuscular Hemoglobin Concent (test code = 786-4) 33.5 31-35 [facility] HospitalRed Cell Distribution Qljjk0546-40-25 21:21:00* Test Item Value Reference Range Interpretation Comments Red Cell Distribution Width (test code = 35233-8) 14.1 11.7 -14.4 [facility] HospitalPlatelet Mciag8541-67-66 21:21:00* Test Item Value Reference Range Interpretation Comments Platelet Count (test code = 777-3) 236 140-360 [facility] HospitalNeutrophils (%) (Auto)2017-07-24 21:21:00 * Test Item Value Reference Range Interpretation Comments Neutrophils (%) (Auto) (test code = 51855-2) 59.0 38.7-80.0 [facility] HospitalLymphocytes (%) (Auto)2017-07-24 21:21:00 * Test Item Value Reference Range Interpretation Comments Lymphocytes (%) (Auto) (test code = 736-9) 25.2 18.0-39.1 [facility] HospitalMonocytes (%) (Auto)2017-07-24 21:21:00* Test Item Value Reference Range Interpretation Comments Monocytes (%) (Auto) (test code = 5905-5) 12.5 4.4-11.3 H [facility] HospitalEosinophils (%) (Auto)2017-07-24 21:21:00 * Test Item Value Reference Range Interpretation Comments Eosinophils (%) (Auto) (test code = 713-8) 2.9 0.0-6.0 [facility] HospitalBasophils (%) (Auto)2017-07-24 21:21:00* Test Item Value Reference Range Interpretation Comments Basophils (%) (Auto) (test code = 706-2) 0.2 0.0-1.0 [facility] HospitalIM GRANULOCYTES %2017-07-24 21:21:00* Test Item Value Reference Range Interpretation Comments IM GRANULOCYTES % (test code = IM GRANULOCYTES %) 0.2 0.0- 1.0 [facility] HospitalNeutrophils # (Auto)2017-07-24 21:21:00* Test Item Value Reference Range Interpretation Comments Neutrophils # (Auto) (test code = 751-8) 4.8 2.1-6.9 [facility] HospitalLymphocytes # (Auto)2017-07-24 21:21:00* Test Item Value Reference Range Interpretation Comments Lymphocytes # (Auto) (test code = 23578-6) 2.1 1.0-3.2 [facility] HospitalMonocytes # (Auto)2017-07-24 21:21:00* Test Item Value Reference Range Interpretation Comments Monocytes # (Auto) (test code = 742-7) 1.0 0.2-0.8 H [facility] HospitalEosinophils # (Auto)2017-07-24 21:21:00* Test Item Value Reference Range Interpretation Comments Eosinophils # (Auto) (test code = 711-2) 0.2 0.0-0.4 [facility] HospitalBasophils # (Auto)2017-07-24 21:21:00* Test Item Value Reference Range Interpretation Comments Basophils # (Auto) (test code = 704-7) 0.0 0.0-0.1 [facility] HospitalAbsolute Immature Granulocyte (auto 2017-07-24 21:21:00* Test Item Value Reference Range Interpretation Comments Absolute Immature Granulocyte (auto (arcadio t code = Absolute Immature Granulocyte (auto) 0.02 0-0.1 [facility] [address] [place] [address] Patient Name: EDWARD YOON MR #: [id number] : 1945 Age/Sex: 71/F Req #: [id number] Adm Physician: Ordered by: TOBI HENSON MD, MD Report #: [id number] Location: [facility] Room/Bed: Procedure: [id number] DX/HEEL RT Exam Date: 08/20/17 Exam Time: 919 REPORT STATUS: Signed PROCEDURE: X-RAY RIGHT HEEL COMPARISON: None. INDICATIONS: H EEL SPUR, HEEL PAIN FINDINGS: No acute, displaced fracture or dis location. Mild degenerative plantar and posterior calcaneal spur. Joint space s are well-maintained. Mild soft tissue swelling adjacent to the superior mar gin of the calcaneus. CONCLUSION: no acute osseous abnormal ity. Degenerative plantar and posterior calcaneal spur. Dictated by: Ángel Alonso M.D. on 08/20/2017 at 10:16 Electronically approved by: Stacey Alonso M.D. on 08/20/2017 at 10:16 Dictated By: STACEY ALONSO MD E lectronically Signed By: STACEY ALONSO MD on 08/20/17 1016 Transcribed By: [facility] on 08/20/17 1016 COPY TO: TOBI HENSON LOWER LEG LEFT [facility] [address] [address] Patient Name: EDWARD YOON MR #: [id number] : 0 1945 Age/Sex: 71/F Req #: [id number] Adm Physician: Ordered by: HEMANT CHASE MD Report #: [id number] Location: ER Ro om/Bed: Procedure: [id number] DX/LOWER LEG LEFT Exam Date: 07/24/17 Exam Time: 2045 REPORT STATUS: S igned LOWER LEG LEFT - 2 views HISTORY: Pain. COMPARISON: None av ailable. FINDINGS: Bones: No acute displaced fracture. Osseous alignment is within normal limits. Joints: The joint spaces are well-rosalino ntained. Soft tissues: The soft tissues appear unremarkable. IMPR ESSION: No acute radiographic abnormality. Signed by: Dr. Jones Johnson M.D. on 07/24/2017 9:05 PM Dictated By: JONES JOHNSON MD 04 Transcribed By: RAYMON on 07/24/172104 COPY TO: HEMANT CHASE MD MAMMOGRAPHY DIGITAL SCR [address] [place] [address] Patient Name: EDWARD YOON MR #: [id number] : 1945 Age/Sex: 71/F Req #: [id number] Adm Physician: Ordered by: SIXTO MERINO, TOBI Chavira MD Report #: [id number] Location: MAMMO Room/Bed: Procedure: [id number] MG/MAMMOGRAPHY DIGITAL SCR BILAT Exam Date: 07/16/17 Exam Time: 1106 REPORT STATUS: Signed #[id number] - MGSCRBIL #BILATERAL DIGITAL SCRE ENING MAMMOGRAM WITH CAD: 07/16/2017 CLINICAL: Routine screening. Compar sarah is made to exams dated: 07/15/2016 ultrasound - [facility], 01/14/2016 mammogram and 12/27/2015 mammogram - [facility]. Current study contains 6 films. There are scattered fibroglandular elements in both breasts. Current study was also evaluated with a Computer Aided Detection (CAD) system. There are benign vascular calcifications and calcifications in both breasts. There also is a biopsy clip in the right breast. No signi ficant masses, calcifications, or other findings are seen in either breast. There has been no significant interval change. IMPRESSION: BENIGN There i s no mammographic evidence of malignancy. A 1 year screening mammogram is recom mended. The patient will be notified by letter of the results. Олег mario/bertin:08/05/2017 09:27:26 Imaging Techn ologist: Michelle LIU(R)(M), [facility] letter se nt: Compared to Prior B9 Mammogram BI-RADS: 2 Benign Dictated By: TAQUERIA HINDS DO 6 Transcr ibed By: BERTIN on 08/05/17926 COPY TO: TOBI HENSON
--- OUTSIDE RECORDS SUMMARY | 2019-09-22 20:39 | XMS REPORT | Continuity of Care Document ---
Author Author Rewind [employer]EDWARD [employer] Address Unknown Phone Unavailable Care Team Providers Care Filling Mixer Name Role Phone Suso Information [employer] Service Management Unavailable Un available Problems Problem Status Onset Date Classification Date Reported Comments Source LEG PAIN Active 06/22/2012 [facility] LEFT LEG PAIN Active 06/18/2012 [facility] Medications Medication Details Route Status Patient Instructions Ordering Provider Order Date Source Phenergan 25 mg oral tablet 25 mg, 1 tab, PO, Q4H, PRN, 15 tab, Nausea, Substitution Allowed PO Active [facility] 06/19/2012 [facility] Powers 5/325 oral tablet 1-2 ta b, PO, Q4-6H, PRN, 15 tab, Pain, Substitution Allowed, Maintenance PO Active [facility] 06/19/2012 [facility] Zofran 4 mg, 2 mL, Route: IVP, Drug form: INJ, ONCE, Dosing Weight 98.636, kg, Priority: STAT, Start date: 06/18/12 23:22:00, Stop date: 06/18/12 23:22:00 IVP No Longer Active [facility] 06/19/2012 [facility] morphine Sulfate 4 mg, 2 mL, R oute: IVP, Drug form: INJ, ONCE, Dosing Weight 98.636, kg, Priority: STAT, Start date: 06/18/12 23:22:00, Stop date: 06/18/12 23:22:00 IVP No Longer Active [facility] 06/19/2012 [facility] Allergies, Adverse Reactions, Alerts Substance Category Reaction Severity Reaction type Status Date Reported Comments Source Levaquin drug allergy Allergy Act diana [facility] penicillins propensity to adve rse reactions to substance Adverse Reaction Active [facility] Immunizations No Data Provided for This Section Results No Data Provided for This Section Pathology Reports No Data Provided for This Section Diagnostic Reports No Data Provided for This Section Consultation Notes No Data Provided for This Section Discharge Summaries No Data Provided for This Section History and Physicals No Data Provided for This Section Vital Signs Vital Sign Value Date Comments Source Weight 98.636 06/22/2012 [facility] Height 165.1 cm 06/22/2012 [facility] Weight 98.636 06/19/2012 [facility] Height 165.1 cm 06/19/2012 [facility] Encounters Location Location Details Encounter Type Encounter Number Reason For Visit Attending Provider ADM Date DC Date Status Source [facility] Emergency [id number] BHAVYA MORALESAN 06/18/2012 06/19/2012 Discharged [facility] Emergency [id number] LEG PAIN KOBI SUZANNE 06/22/2012 06/22/2012 Active [facility] Procedures No Data Provided for This Section Assessment and Plan No Data Provided for This Section Plan of Care No Data Provided for This Section Social History No Data Provided for This Section Family History No Data Provided for This Section Advance Directives No Data Provided for This Section Functional Status No Data Provided for This Section
--- NOTE | 2019-09-22 20:41 | NUR ---
PT LEFT BEFORE TRIAGE,
== END | disposition left against medical advice (07) ==
LOC: FSED 20:35
DX: S99.921A Unspecified injury of right foot, initial encounter (principal)

== ENCOUNTER → 2020-01-26 | Day surgery (SDC) | payer MEDICARE, OTHER ==
[2020-01-23 08:39] LABS: BASOPHILS % 0.4 % (0.0-1.0); EOSINOPHILS # (AUTO) 0.1 (0.0-0.4); EOSINOPHILS % 1.5 % (0.0-6.0); HEMATOCRIT 40.7 % (34.2-44.1); LYMPHOCYTES # (AUTO) 1.6 (1.0-3.2); LYMPHOCYTES % 21.7 % (18.0-39.1); MEAN CORPUSCULAR HEMOGLOBIN 27.8 pg (28-32); MEAN CORPUSCULAR HGB CONC 31.9 g/dL (31-35); MONOCYTES # (AUTO) 0.7 (0.2-0.8); MONOCYTES % 9.4 % (4.4-11.3); NEUTROPHILS # (AUTO) 4.9 (2.1-6.9); NEUTROPHILS % 66.9 % (38.7-80.0); PLATELET COUNT 196 x10e3/uL (140-360); RED BLOOD COUNT 4.68 x10e6/uL (3.6-5.1); RED CELL DISTRIBUTION WIDTH 14.1 % (11.7-14.4)
[2020-01-23 09:06] LABS: INR 0.94; PROTHROMBIN TIME 13.1 seconds (11.9-14.5)
[2020-01-23 09:07] LABS: PARTIAL THROMBOPLASTIN TIME 24.4 seconds (23.8-35.5)
[2020-01-23 09:15] LABS: ALANINE AMINOTRANSFERASE 15 IU/L (0-55); ALBUMIN 4.3 g/dL (3.5-5.0); ALBUMIN/GLOBULIN RATIO 1.2 (0.8-2.0); ALKALINE PHOSPHATASE 97 IU/L (40-150); ANION GAP 12.7 mmol/L (8-16); BLOOD UREA NITROGEN 9 mg/dL (7-26); BUN/CREATININE RATIO 12 (6-25); CARBON DIOXIDE 25 mmol/L (22-29); CHLORIDE 107 mmol/L (98-107); CREATININE, SERUM 0.77 mg/dL (0.57-1.11); EST GLOMERULAR FILTRATION RATE > 60 ML/MIN (60-); GLUCOSE 90 mg/dL (74-118); POTASSIUM 3.7 mmol/L (3.5-5.1); SODIUM 141 mmol/L (136-145)
[2020-01-26] VITALS (18 sets, daily range): BP systolic 123–185; BP diastolic 66–85
[~2020-01-26] VITALS: Ht 165.1 cm; Wt 94.8 kg
[~2020-01-26] MED LIST changes: +ASPIRIN 325 MG TAB ONE; +CLOPIDOGREL BISULFATE 75 MG TAB ONE; +FENTANYL CITRATE/PF 100MCG/2 ML INJ ONE; +HEPARIN SOD (PORCINE) 1000 UNIT/ML 30ML ONE; +HEPARIN SOD/SOD CHLORIDE 2,000 ML ONE; +HYDROCODONE/APAP 5MG-325MG TAB ONE; +IOPAMIDOL 370 MG/ML 200 ML INFUS..BTL INJ ONE; +LIDOCAINE HCL 2% LOCAL 20 ML VIAL ONE; +MIDAZOLAM HCL 2 MG/2 ML VIAL ONE; +NITROGLYCERIN 0.4 MG SUBL ONE; +NITROGLYCERIN/D5W 200 MCG/ML 250 ML ONE; +SODIUM CHLORIDE 0.9% 1000ML 1,000 ML ONE; +VERAPAMIL HCL 2.5 MG/ML 2 ML VIAL ONE
== END | disposition home or self-care (01) ==
LOC: CATH LAB 07:28
PROVIDERS: ATTEND Internal Medicine Cardiovascular Disease
DX: I25.119 Atherosclerotic heart disease of native coronary artery with unspecified angina pectoris (principal); R94.39 Abnormal result of other cardiovascular function study; Z01.812 Encounter for preprocedural laboratory examination; Z11.59 Encounter for screening for other viral diseases; Z79.02 Long term (current) use of antithrombotics/antiplatelets
CPT/HCPCS: 76937; 93458; C9600; 36415; 80053; 85025; 85610; 85730; 92920; 92928; 99152; 99153; C1725; C1874; J1644; J2001; J2250; J3010; J7030; Q9967; U0002

== ENCOUNTER → 2021-03-13 | Day surgery (SDC) | payer MEDICARE, OTHER ==
[2021-03-12 11:03] LABS: BASOPHILS % 0.6 % (0.0-1.0); EOSINOPHILS # (AUTO) 0.2 (0.0-0.4); EOSINOPHILS % 3.9 % (0.0-6.0); HEMATOCRIT 41.1 % (34.2-44.1); HEMOGLOBIN 12.8 g/dL (12.0-16.0); LYMPHOCYTES # (AUTO) 1.4 (1.0-3.2); LYMPHOCYTES % 26.6 % (18.0-39.1); MEAN CORPUSCULAR HEMOGLOBIN 27.6 pg (28-32); MEAN CORPUSCULAR HGB CONC 31.1 g/dL (31-35); MEAN CORPUSCULAR VOLUME 88.8 fL (81-99); MONOCYTES # (AUTO) 0.5 (0.2-0.8); MONOCYTES % 9.8 % (4.4-11.3); NEUTROPHILS # (AUTO) 3.2 (2.1-6.9); NEUTROPHILS % 58.9 % (38.7-80.0); PLATELET COUNT 188 x10e3/uL (140-360); RED BLOOD COUNT 4.63 x10e6/uL (3.6-5.1); RED CELL DISTRIBUTION WIDTH 14.7 % (11.7-14.4)
[~2021-03-13] MED LIST changes: -ASPIRIN 325 MG TAB ONE; -CLOPIDOGREL BISULFATE 75 MG TAB ONE; -HEPARIN SOD (PORCINE) 1000 UNIT/ML 30ML ONE; -HEPARIN SOD/SOD CHLORIDE 2,000 ML ONE; -HYDROCODONE/APAP 5MG-325MG TAB ONE; -IOPAMIDOL 370 MG/ML 200 ML INFUS..BTL INJ ONE; -LIDOCAINE HCL 2% LOCAL 20 ML VIAL ONE; +LIDOCAINE HCL 2% LOCAL INJ 5 ML SDV VIAL INJ ONE; -NITROGLYCERIN 0.4 MG SUBL ONE; -NITROGLYCERIN/D5W 200 MCG/ML 250 ML ONE; +PROPOFOL IV EMULSION 10 MG/ML 20 ML VIAL ONE; -SODIUM CHLORIDE 0.9% 1000ML 1,000 ML ONE; -VERAPAMIL HCL 2.5 MG/ML 2 ML VIAL ONE
[2021-03-14 08:20] VITALS: BP 111/59
== END | disposition home or self-care (01) ==
LOC: OR 09:30
PROVIDERS: ATTEND Internal Medicine Gastroenterology
DX: Z12.11 Encounter for screening for malignant neoplasm of colon (principal); D12.3 Benign neoplasm of transverse colon; K57.30 Diverticulosis of large intestine without perforation or abscess without bleeding; K64.8 Other hemorrhoids; K21.9 Gastro-esophageal reflux disease without esophagitis; Z71.3 Dietary counseling and surveillance; I25.10 Atherosclerotic heart disease of native coronary artery without angina pectoris; I10 Essential (primary) hypertension; I48.91 Unspecified atrial fibrillation; E66.9 Obesity, unspecified; M79.7 Fibromyalgia; R06.09 Other forms of dyspnea; F41.9 Anxiety disorder, unspecified; Z88.1 Allergy status to other antibiotic agents; Z88.0 Allergy status to penicillin; Z91.048 Other nonmedicinal substance allergy status; Z88.8 Allergy status to other drugs, medicaments and biological substances; Z01.810 Encounter for preprocedural cardiovascular examination; Z01.812 Encounter for preprocedural laboratory examination; Z20.822 Contact with and (suspected) exposure to COVID-19; Z79.02 Long term (current) use of antithrombotics/antiplatelets; Z79.899 Other long term (current) drug therapy; Z68.38 Body mass index [BMI] 38.0-38.9, adult; Z95.5 Presence of coronary angioplasty implant and graft
CPT/HCPCS: 36415; 45378; 45385; 85025; 93005; J2001; J2250; J3010; U0002

== ENCOUNTER 2024-11-22 09:34 | Emergency (ER) | payer MEDICARE, OTHER ==
[~2024-11-22] VITALS: Ht 165.1 cm; Wt 98.0 kg
[~2024-11-22 09:34] MED LIST changes: -FENTANYL CITRATE/PF 100MCG/2 ML INJ ONE; -LIDOCAINE HCL 2% LOCAL INJ 5 ML SDV VIAL INJ ONE; -MIDAZOLAM HCL 2 MG/2 ML VIAL ONE; -PROPOFOL IV EMULSION 10 MG/ML 20 ML VIAL ONE
[2024-11-22 09:39] VITALS: TEMP 98
[2024-11-22] MEDS: TETANUS/DIPHTHERIA TOX ADULT 0.5 ML SYR IM ONE (10:06)
[2024-11-22 12:00] VITALS: PULSE 55; RESP 18; O2SAT 100
[2024-11-22] MEDS: ACETAMINOPHEN 325 MG TAB PO ONE (12:19)
== END 2024-11-22 13:30 | disposition home or self-care (01) ==
LOC: ER 09:40
DX: S00.83XA Contusion of other part of head, initial encounter (principal); M25.532 Pain in left wrist; M25.562 Pain in left knee; M25.561 Pain in right knee; W01.198A Fall on same level from slipping, tripping and stumbling with subsequent striking against other object, initial encounter; Y92.89 Other specified places as the place of occurrence of the external cause; I10 Essential (primary) hypertension; I48.91 Unspecified atrial fibrillation; H26.9 Unspecified cataract
CPT/HCPCS: 70450; 72125; 90471; 90714; 99283